=== PATIENT | male | born 2000 | race Caucasian/White ===

== ENCOUNTER 2019-07-17 11:16 | Emergency (ER) | payer OTHER ==
[2019-07-17 11:22] VITALS: BP 147/71
--- NOTE | 2019-07-17 11:55 | ER Document Report ---
HPI - HPI Patient complains to provider of: left forearm scrape, need for tdap Time Seen by Provider: 07/17/19 11:45 Onset: Just prior to arrival Onset/Duration: Sudden Quality of pain: Achy Severity: Mild Pain Level: 2 Context: 18-year-old male with the listed past medical history here for a scrape to his left forearm that he sustained accidentally on a broken glass bowl that was in a trash bag he was attempting to take out to the dumpster while at work prior to arrival. he requests a work note. He denies any intentional self-harm. He came in because he states his last tetanus was more than 5 years ago and he would like tetanus prophylaxis. He denies any numbness or tingling. No fevers. No history of diabetes or asthma. No recent antibiotics or steroids. No blood thinners. No excessive blood loss or acute blood loss symptoms. no hx of bleeding or clotting disorders. Pain worse with movement and palpation. It is better with rest. He is right-handed. No other injuries. No other complaints at this time. no surgeries on this arm. Associated Symptoms: denies: Fever Exacerbated by: Movement Relieved by: Remaining still Similar symptoms previously: No Recently seen / treated by doctor: No - ROS Systems Reviewed and Negative: Yes All other systems reviewed and negative - to include 10 systems, unless mentioned in the hpi Past Medical History - General Information source: Patient - Social History Smoking Status: Never Smoker Frequency of alcohol use: None Drug Abuse: None Family History: Reviewed & Not Pertinent Patient has suicidal ideation: No Patient has homicidal ideation: No - Medical History Medical History: Negative Renal/ Medical History: Denies: Hx Peritoneal Dialysis - Immunizations Hx Diphtheria, Pertussis, Tetanus Vaccination: No Vertical Provider Document - CONSTITUTIONAL Agree With Documented VS: Yes Exam Limitations: No Limitations General Appearance: WD/WN Notes: GENERAL_APPEARANCE: alert and oriented x 3, mood and affect wnl, cooperative, no obvious discomfort. Pleasant, obese young white male, smiling, speaking in full sentences, in no sign of pain or resp distress, easily sitting up, no one is with him VITALS: reviewed, see vital signs table. HEAD: no_swelling\\tenderness on the head, normocephalic, atraumatic NECK: supple, no_neck_tenderness. full rom and full strength. HEART: RRR LUNGS: CTAB, good air exchange diffusely BACK: no_back_tenderness EXTREMITIES: good pulse in all extremities, left forearm mid shaft palmar aspe ct has a very superficial linear scrape that is approx 7cm long and <1mm wide and <1mm deep. it doesn't require suture repair. no active bleeding or drainage. no sign of cellulitis or compartment syndrome. no grossly visible or palpable fb. area has no erythema, no swelling, mild tenderness and no other abrasions\\lacerations other than as noted. Full rom and full strength. Normal gait. good hand development associate. brisk cap refill. no other shortening or rotation of the limb or obvious deformities to suggest trauma unless otherwise noted. no other swelling or ttp. no snuff box ttp. pt able to give a thumbs up and an "ok" sign. no sign of tendon or nerve involvement. SKIN: warm, dry, good_color. no rash. no other grossly visible overlying skin changes to suggest trauma NEURO: motor_intact and sensory_intact in injured_extremity. Course - Re-evaluation Re-evalutation: 07/17/19 12:33 Pt here for a very superficial laceration/scrape to his left forearm that does not require suture repair. There is no active bleeding or sign of cellulitis or compartment syndrome. There is no grossly visible or palpable foreign body. The area was irrigated with NS via nursing and dressed with Neosporin and a nonstick dressing. he has no sign of tendon or nerve involvement. He was given Tylenol here for pain with improvement of his symptoms. His Tdap was updated. Advised wound care. Rice therapy. Tylenol or ibuprofen as needed for any pain at home to help with the. Advised to monitor for any signs of infection. advised to f/u with pcp in 1-2 days. return for any worsening symptoms. vss. well appearing. satting well on ra. neurononfocal. pt understands and agrees to plan. On reexam, pt improved with tx listed. remained stable. nontoxic. well appearing. pain controlled. tolerating po. requesting to go home. Documentation achieved through voice recording which may lead to some occasional accidental typographical errors. Extensive efforts have been made to proof read documentation to make sure these are the least as possible. Category Date Time Status Wound care [Dressing/Wound Care (ED)] NOW Care 07/17/19 12:02 Ordered Acetaminophen [Tylenol 325 mg Tablet] Med 07/17/19 12:02 Once 975 mg PO NOW ONE Diph,Pertuss(Acell),Tet Vac/Pf [Boostrix Vaccine 0.5 ml Med 07/17/19 12:02 Once Syringe] 0.5 ml IM NOW ONE - Vital Signs Vital signs: Temp Pulse Resp BP Pulse Ox 98.1 F 82 22 H 147/71 H 98 07/17/19 11:21 07/17/19 11:21 07/17/19 11:21 07/17/19 11:21 07/17/19 11:21 Discharge - Discharge Clinical Impression: Need for Tdap vaccination, Encounter to obtain excuse from work Laceration of left forearm without complication Qualifiers: Encounter type: initial encounter Qualified Code(s): S51.812A - Laceration without foreign body of left forearm, initial encounter Condition: Good Disposition: HOME, SELF-CARE Instructions: Laceration Care ([facility]), Tetanus Immunization Given ([facility]) Additional Instructions: Follow-up with PCP in 1 to 2 days. Return for any worsening symptoms. tylenol or motrin as needed for any pain if not allergic. cool compresses to the area. clean with warm soapy water. neosporin to the area. monitor for signs of infection as discussed. Forms: Return to Work Referrals: SIDDHARTHA RICHARDSON [Primary Care Provider] - Follow up as needed
[2019-07-17] MEDS ORDERED: DIPH/PERTUSS(ACELL)/TETANUS VAC/PF 0.5 ML SYR (>=10YO) IM ONE (12:02)
[2019-07-17] MEDS ORDERED: ACETAMINOPHEN 325 MG TABLET PO ONE (12:02)
== END 2019-07-17 12:15 | disposition home or self-care (01) ==
LOC: ER 11:16
DX: S40.812A Abrasion of left upper arm, initial encounter (principal); W25.XXXA Contact with sharp glass, initial encounter; Z23 Encounter for immunization
CPT/HCPCS: 90471; 90715; 99282